=== PATIENT | female | born 1985 | race Caucasian/White ===

== ENCOUNTER 2019-04-16 20:49 | Emergency (ER) | payer OTHER ==
--- OUTSIDE RECORDS SUMMARY | 2019-04-16 20:51 | XMS REPORT ---
:1985 [facility] Address [address] [place] [address] Care Team Providers Name Role Phone Unavailable Unavailable Unavailable Payers Payer Name Policy Type Policy Number Effective Date Expiration Date Problems This patient has no known problems. Allergies, Adverse Reactions, Alerts Allergy Allergy Status Severity Reaction(s) Onset Inactive Treating Comments Name Type Date Date Clinician No Known DA Active U 2015-09 Allergies 00:00:0 0 Medications This patient has no known medications.
[2019-04-16] MEDS ORDERED: NA CHLORIDE 0.9% 1,000 ML ONE (22:01)
[2019-04-16 22:06] LABS: Barbiturates NEGATIVE (NEGATIVE); Benzodiazepines NEGATIVE (NEGATIVE); Cocaine NEGATIVE (NEGATIVE); METHAMPHETAM NEGATIVE (NEGATIVE); Methadone NEGATIVE (NEGATIVE); Opiates NEGATIVE (NEGATIVE); Phencyclidine NEGATIVE (NEGATIVE); THC Cannibis NEGATIVE (NEGATIVE)
--- NOTE | 2019-04-16 22:12 | RAD REPORT ---
EXAM DESCRIPTION: [place] Single View04/16/2019 9:59 pm CLINICAL HISTORY: cough COMPARISON: 2013 FINDINGS: The lungs appear clear of acute infiltrate. The heart is normal size IMPRESSION: No acute abnormalities displayed
[2019-04-16 22:19] LABS: Absolute Lymphocytes (CBC) 3.2 K/uL (0.7-4.9); Basophils % 0.3 % (0-1.3); Hematocrit 44.3 % (36.0-45.0); Lymphocytes % 31.3 % (15.3-44.8); MPV 9.4 fL (7.6-11.3); RBC Red Blood Cell Count 5.11 M/uL (3.86-4.86)
[2019-04-16 22:30] LABS: ALT/SGPT 21 U/L (12-78); AST/SGOT 9 U/L (15-37); Albumin 3.9 g/dL (3.4-5.0); Alkaline Phosphatase 90 U/L (45-117); BUN Blood Urea Nitrogen 11 mg/dL (7-18); Bicarbonate 24 mmol/L (21-32); Bilirubin Direct 0.1 mg/dL (0-0.2); Bilirubin Total 0.4 mg/dL (0.2-1.0); Glucose Level 85 mg/dL (74-106); Magnesium 2.4 mg/dL (1.8-2.4); NT PRO-BNP 26 pg/mL (<125); Potassium 3.7 mmol/L (3.5-5.1); Protein, Total 8.4 g/dL (6.4-8.2); Sodium Level 138 mmol/L (136-145); Troponin (Emerg Dept Use Only) < 0.02 ng/mL (0.0-0.045)
[2019-04-16 22:31] LABS: Protime INR 0.94
[2019-04-16 22:52] LABS: Urine Blood TRACE (NEG); Urine Glucose NEGATIVE (NEG); Urine Protein NEGATIVE (NEG); Urine Specific Gravity <1.005 (1.005-1.030)
--- NOTE | 2019-04-16 22:57 | EDPHYS ---
Physician Documentation [facility] Name: Kelsey Diaz Age: 33 yrs Sex: Female : 1985 Arrival Date: 04/16/2019 Time: 20:51 Bed 27 Private MD: Ed Brewer ED Physician Alonso Casey HPI: 04/16 22:45 This 33 yrs old Female presents to ER via Ambulatory with complaints of amadeo Stuttering, Leg Weakness, R Side Body Problems. 22:45 The patient's problem is reported as dysphasia, weakness, that is generalized. Onset: amadeo The symptoms/episode began/occurred 2 week(s) ago. Context: the episode(s) was witnessed, by family. The symptoms are alleviated by nothing. The symptoms are aggravated by nothing. Associated signs and symptoms: The patient has no apparent associated signs or symptoms. Severity of symptoms: At their worst the symptoms were mild in the emergency department the symptoms have resolved and did so just prior to arrival. Patient's baseline: Neuro: alert and fully oriented. The patient has experienced similar episodes in the past, several times. Historical: - Allergies: 20:56 No Known Allergies; aj - Home Meds: 20:56 None [Active]; aj - PMHx: 20:56 None; aj - PSHx: 20:56 ; Cholecystectomy; aj - Immunization history:: Adult Immunizations up to date. - Social history:: Smoking status: Patient/guardian denies using tobacco. - Ebola Screening: : Patient negative for fever greater than or equal to 101.5 degrees Fahrenheit, and additional compatible Ebola Virus Disease symptoms Patient denies exposure to infectious person Patient denies travel to an Ebola-affected area in the 21 days before illness onset No symptoms or risks identified at this time. - Family history:: not pertinent. ROS: 22:45 Constitutional: Negative for fever, chills, and weight loss, Eyes: Negative for injury, amadeo pain, redness, and discharge, ENT: Negative for injury, pain, and discharge, Neck: Negative for injury, pain, and swelling, Cardiovascular: Negative for chest pain, palpitations, and edema, Respiratory: Negative for shortness of breath, cough, wheezing, and pleuritic chest pain, Abdomen/GI: Negative for abdominal pain, nausea, vomiting, diarrhea, and constipation, Back: Negative for injury and pain, : Negative for injury, bleeding, discharge, and swelling, MS/Extremity: Negative for injury and deformity, Skin: Negative for injury, rash, and discoloration, Psych: Negative for depression, anxiety, suicide ideation, homicidal ideation, and hallucinations, Allergy/Immunology: Negative for hives, rash, and allergies, Endocrine: Negative for neck swelling, polydipsia, polyuria, polyphagia, and marked weight changes, Hematologic/Lymphatic: Negative for swollen nodes, abnormal bleeding, and unusual bruising. 22:45 Neuro: Positive for weakness. Exam: 22:45 Radiologist reports: neg amadeo 22:45 Constitutional: This is a well developed, well nourished patient who is awake, alert, and in no acute distress. Head/Face: Normocephalic, atraumatic. Eyes: Pupils equal round and reactive to light, extra-ocular motions intact. Lids and lashes normal. Conjunctiva and sclera are non-icteric and not injected. Cornea within normal limits. Periorbital areas with no swelling, redness, or edema. ENT: Nares patent. No nasal discharge, no septal abnormalities noted. Tympanic membranes are normal and external auditory canals are clear. Oropharynx with no redness, swelling, or masses, exudates, or evidence of obstruction, uvula midline. Mucous membranes moist. Neck: Trachea midline, no thyromegaly or masses palpated, and no cervical lymphadenopathy. Supple, full range of motion without nuchal rigidity, or vertebral point tenderness. No Meningismus. Chest/axilla: Normal chest wall appearance and motion. Nontender with no deformity. No lesions are appreciated. Cardiovascular: Regular rate and rhythm with a normal S1 and S2. No gallops, murmurs, or rubs. Normal PMI, no JVD. No pulse deficits. Respiratory: Lungs have equal breath sounds bilaterally, clear to auscultation and percussion. No rales, rhonchi or wheezes noted. No increased work of breathing, no retractions or nasal flaring. Abdomen/GI: Soft, non-tender, with normal bowel sounds. No distension or tympany. No guarding or rebound. No evidence of tenderness throughout. Back: No spinal tenderness. No costovertebral tenderness. Full range of motion. Skin: Warm, dry with normal turgor. Normal color with no rashes, no lesions, and no evidence of cellulitis. MS/ Extremity: Pulses equal, no cyanosis. Neurovascular intact. Full, normal range of motion. Neuro: Awake and alert, GCS 15, oriented to person, place, time, and situation. Cranial nerves II-XII grossly intact. Motor strength 5/5 in all extremities. Sensory grossly intact. Cerebellar exam normal. Normal gait. Psych: Awake, alert, with orientation to person, place and time. Behavior, mood, and affect are within normal limits. 22:48 Neuro: Orientation: is normal, appropriate for stated age, no acute changes, to person, amadeo place, time \T\ situation. Mentation: is normal, appropriate for stated age, no acute changes, responsive to voice lucid, able to follow commands, Memory: is normal, appropriate for stated age, no acute changes, Cranial nerves: grossly normal, is grossly normal based on the patient's age, no acute changes, Cerebellar function: is grossly normal, is grossly normal based on the patient's age, no acute changes, Motor: is normal, is grossly normal based on the patient's age, Sensation: is normal, no obvious gross deficits, appropriate Gait: is steady, appropriate for age, Deep tendon reflexes are 2+ (normal) in the bilateral brachioradialis, bicep, tricep and patellar and Achilles tendons, Babinski testing is normal, seizure activity, is not displayed by the patient. Vital Signs: 20:56 BP 140 / 76; Pulse 84; Resp 16; Temp 97.7; Pulse Ox 99% on R/A; Weight 99.79 kg; Height aj 5 ft. 4 in. (162.56 cm); 22:00 BP 121 / 85; Pulse 87; Resp 18; Pulse Ox 99% on R/A; rv 23:00 BP 111 / 90; Pulse 84; Resp 17; Temp 98; Pulse Ox 99% on R/A; rv 20:56 Body Mass Index 37.76 (99.79 kg, 162.56 cm) aj NIH Stroke Scale Scores: 22:48 NIHSS Score: 0 amadeo MDM: 21:36 Patient medically screened. amadeo 22:47 Data reviewed: vital signs, nurses notes, lab test result(s), EKG, radiologic studies, [facility] scan, plain films. 04/16 21:38 Order name: Basic Metabolic Panel; Complete Time: 22:43 [facility] 04/16 21:38 Order name: CBC with Diff 04/16 21:38 Order name: LFT's; Complete Time: 22:43 [facility] 04/16 21:38 Order name: Magnesium; Complete Time: 22:43 [facility] 04/16 21:38 Order name: NT PRO-BNP; Complete Time: 22:43 [facility] 04/16 21:38 Order name: PT-INR; Complete Time: 22:55 [facility] 04/16 21:38 Order name: Troponin (emerg Dept Use Only); Complete Time: 22:43 [facility] 04/16 21:38 Order name: XRAY Chest (1 view); Complete Time: 22:43 [facility] 04/16 21:38 Order name: CT Head Brain wo Cont 04/16 21:38 Order name: Sed Rate 04/16 21:38 Order name: CRP; Complete Time: 22:43 [facility] 04/16 21:38 Order name: UDS; Complete Time: 22:43 [facility] 04/16 21:57 Order name: Urine Dipstick--Ancillary (enter results); Complete Time: 22:55 [facility] 04/16 21:57 Order name: Test, Serum; Complete Time: 22:55 [facility] 04/16 21:38 Order name: EKG; Complete Time: 21:39 [facility] 04/16 21:38 Order name: Cardiac monitoring; Complete Time: 21:49 [facility] 04/16 21:38 Order name: EKG - Nurse/Tech; Complete Time: 21:49 [facility] 04/16 21:38 Order name: IV Saline Lock; Complete Time: 22:08 [facility] 04/16 21:38 Order name: Labs collected and sent; Complete Time: 22:08 [facility] 04/16 21:38 Order name: O2 Per Protocol; Complete Time: 21:49 [facility] 04/16 21:38 Order name: O2 Sat Monitoring; Complete Time: 21:49 [facility] 04/16 21:38 Order name: Urine Dipstick-Ancillary (obtain specimen); Complete Time: 21:49 [facility] 04/16 21:38 Order name: Urine Test (obtain specimen); Complete Time: 21:49 [facility] Administered Medications: 22:08 Drug: foLIC Acid 1 mg Route: IVPB; Site: right antecubital; mg2 23:13 Follow up: IV Status: Completed infusion rv 22:08 Drug: NS 0.9% 1000 ml Route: IV; Rate: 1 bolus; Site: right antecubital; mg2 23:13 Follow up: IV Status: Completed infusion; IV Intake: 1000ml rv 22:53 Drug: Aspirin 162 mg Route: PO; rv 23:13 Follow up: Response: No adverse reaction rv Disposition: 04/16/19 22:56 Discharged to Home. Impression: Weakness. - Condition is Stable. - Discharge Instructions: Weakness, Fatigue, Weakness, [id number], Aspirin and Your Heart. - Prescriptions for Vitamin 27- 0.8 mg Oral Tablet - take 1 tablet by ORAL route once daily; 30 tablet. - Medication Reconciliation Form, Thank You Letter, Antibiotic Education, Prescription Opioid Use form. - Follow up: Ed Brewer; When: 2 - 3 days; Reason: Recheck today's complaints, Continuance of care, Re-evaluation by your physician. Follow up: Tai White; When: 2 - 3 days; Reason: Recheck today's complaints, Continuance of care, Re-evaluation by your physician. - Problem is new. - Symptoms have improved. NIH Stroke Scale - NIH Stroke Score Date: 04/16/2019 Time: 22:48 Total Score = 0 1a. Level of Consciousness (LOC) - 0(Alert) 1b. Level of Consciousness (LOC) (Year \T\ Age) - 0(Both) 1c. LOC Commands (Open \T\ Closes Eyes/Wholesaler) - 0(Both) 2. Best Gaze (Lateral Gaze Paresis) - 0(Normal) 3. Visual Field Loss - 0(No visual loss) 4. Facial Palsy - 0(Normal) 5a. Left Arm: Motor (10-second hold) - 0(No drift) 5b. Right Arm: Motor (10-second hold) - 0(No drift) 6a. Left Leg: Motor (5-second hold - always test supine) - 0(No drift) 6b. Right Leg: Motor (5-second hold - always test supine) - 0(No drift) 7. Limb Ataxia (finger/nose \T\ heel/root - test with eyes open) - 0(Absent) 8. Sensory Loss (pinprick arms/legs/face) - 0(Normal) 9. Best Language: Aphasia (description/naming/reading) - 0(No aphasia) 10. Dysarthria (speech clarity - read or repeat words) - 0(Normal) 11. Extinction and Inattention (visual/tactile/auditory/spatial/personal) - 0(No abnormality) Initials: amadeo Signatures: Dispatcher [employer] Renata Mckeon RN Alonso Sanchez MD MD cha Gardose, Michele, RN RN mg2 Vicente, Ronaldo, RN RN rv Corrections: (The following items were deleted from the chart) 23:15 22:56 04/16/2019 22:56 Discharged to Home. Impression: Weakness. Condition is rv Stable. Discharge Instructions: Weakness, Fatigue, Weakness, [id number], Aspirin and Your Heart. Prescriptions for Vitamin 27-0.8 mg Oral Tablet - take 1 tablet by ORAL route once daily; 30 tablet. and Forms are Medication Reconciliation Form, Thank You Letter, Antibiotic Education, Prescription Opioid Use. Follow up: Ed Brewer; When: 2 - 3 days; Reason: Recheck today's complaints, Continuance of care, Re-evaluation by your physician. Follow up: Tai White; When: 2 - 3 days; Reason: Recheck today's complaints, Continuance of care, Re-evaluation by your physician. Problem is new. Symptoms have improved. amadeo
--- NOTE | 2019-04-16 22:57 | ER ---
Nurse's Notes [facility] Name: Kelsey Diaz Age: 33 yrs Sex: Female : 1985 Arrival Date: 04/16/2019 Time: 20:51 Bed 27 Private MD: Ed Brewer Diagnosis: Weakness Presentation: 04/16 20:54 Presenting complaint: Patient states: Reports bilateral leg weakness and numbness for 1 aj week, also reports difficulty finding words for same length of time. Patient reports "trouble using right side of body" for 4 months. Seen by multiple providers. Smooth steady gait with no speech difficulty noted in triage. Transition of care: patient was not received from another setting of care. Onset of symptoms was December 2018. Risk Assessment: Do you want to hurt yourself or someone else? Patient reports no desire to harm self or others. Initial Sepsis Screen: Does the patient meet any 2 criteria? No. Patient's initial sepsis screen is negative. Does the patient have a suspected source of infection? No. Patient's initial sepsis screen is negative. Care prior to arrival: None. 20:54 Method Of Arrival: Ambulatory 20:54 Acuity: MARLEN 4 aj Triage Assessment: 20:56 General: Appears in no apparent distress. comfortable, Behavior is calm, cooperative, aj appropriate for age. Pain: Denies pain. Neuro: Level of Consciousness is awake, alert, obeys commands, Oriented to person, place, time, situation, Appropriate for age Curing Oven Tender are equal bilaterally Moves all extremities. Full function Gait is steady, Speech is normal, Facial symmetry appears normal, Pupils are PERRLA, Numbness in right leg and left leg. Neuro:. Respiratory: Airway is patent Respiratory effort is even, unlabored, Respiratory pattern is regular, symmetrical. Derm: Skin is intact, is healthy with good turgor, Skin is pink, warm \\T\\ dry. normal. Historical: - Allergies: 20:56 No Known Allergies; aj - Home Meds: 20:56 None [Active]; aj - PMHx: 20:56 None; aj - PSHx: 20:56 ; Cholecystectomy; aj - Immunization history:: Adult Immunizations up to date. - Social history:: Smoking status: Patient/guardian denies using tobacco. - Ebola Screening: : Patient negative for fever greater than or equal to 101.5 degrees Fahrenheit, and additional compatible Ebola Virus Disease symptoms Patient denies exposure to infectious person Patient denies travel to an Ebola-affected area in the 21 days before illness onset No symptoms or risks identified at this time. - Family history:: not pertinent. Screenin:41 Abuse screen: Denies threats or abuse. Denies injuries from another. Nutritional rv screening: No deficits noted. Tuberculosis screening: No symptoms or risk factors identified. Fall Risk None identified. Assessment: 21:40 General: Appears in no apparent distress. comfortable, Behavior is calm, cooperative. rv Pain: Denies pain. Neuro: Level of Consciousness is awake, alert, obeys commands, Oriented to person, place, time, situation. Cardiovascular: Patient's skin is warm and dry. Respiratory: Airway is patent. GI: No signs and/or symptoms were reported involving the gastrointestinal system. : No signs and/or symptoms were reported regarding the genitourinary system. EENT: No signs and/or symptoms were reported regarding the EENT system. Derm: Skin is intact. Musculoskeletal: Reports weakness in right arm and right leg. 22:13 Reassessment: Patient appears in no apparent distress at this time. Patient and/or rv family updated on plan of care and expected duration. Pain level reassessed. Patient is alert, oriented x 3, equal unlabored respirations, skin warm/dry/pink. patient came back from CT scan. awaiting results. Vital Signs: 20:56 BP 140 / 76; Pulse 84; Resp 16; Temp 97.7; Pulse Ox 99% on R/A; Weight 99.79 kg; Height aj 5 ft. 4 in. (162.56 cm); 22:00 BP 121 / 85; Pulse 87; Resp 18; Pulse Ox 99% on R/A; rv 23:00 BP 111 / 90; Pulse 84; Resp 17; Temp 98; Pulse Ox 99% on R/A; rv 20:56 Body Mass Index 37.76 (99.79 kg, 162.56 cm) aj NIH Stroke Scale Scores: 22:48 NIHSS Score: 0 [facility] ED Course: 20:51 Patient arrived in ED. do 20:52 Ed Brewer MD is Private Physician. do 20:56 Triage completed. aj 20:56 Arm band placed on left wrist. Patient placed in waiting room. aj 21:36 Alonso Casey MD is Attending Physician. amadeo 21:39 Santy Monahan, RN is Primary Nurse. rv 21:41 Patient has correct armband on for positive identification. Placed in gown. Bed in low rv position. Call light in reach. Side rails up X 1. Adult w/ patient. Pulse ox on. NIBP on. 22:00 XRAY Chest (1 view) In Process Unspecified. EDMS 22:08 No provider procedures requiring assistance completed. Inserted saline lock: 22 gauge mg2 in right antecubital area, using aseptic technique. Blood collected. by ANGEL Beaver Tech. 22:16 CT Head Brain wo Cont In Process Unspecified. EDMS 22:56 Ed Brewer MD is Referral Physician. amadeo 22:56 Tai White MD is Referral Physician. amadeo 23:14 IV discontinued, intact, bleeding controlled, No redness/swelling at site. Pressure rv dressing applied. Administered Medications: 22:08 Drug: foLIC Acid 1 mg Route: IVPB; Site: right antecubital; mg2 23:13 Follow up: IV Status: Completed infusion rv 22:08 Drug: NS 0.9% 1000 ml Route: IV; Rate: 1 bolus; Site: right antecubital; mg2 23:13 Follow up: IV Status: Completed infusion; IV Intake: 1000ml rv 22:53 Drug: Aspirin 162 mg Route: PO; rv 23:13 Follow up: Response: No adverse reaction rv Intake: 23:13 IV: 1000ml; Total: 1000ml. rv Outcome: 22:56 Discharge ordered by . amadeo 23:14 Discharged to home ambulatory, with family. rv 23:14 Condition: good 23:14 Discharge instructions given to patient, Instructed on discharge instructions, follow up and referral plans. medication usage, Demonstrated understanding of instructions, follow-up care, medications, Prescriptions given X 1. 23:15 Patient left the ED. rv NIH Stroke Scale - NIH Stroke Score Date: 04/16/2019 Time: 22:48 Total Score = 0 1a. Level of Consciousness (LOC) - 0(Alert) 1b. Level of Consciousness (LOC) (Year \\T\\ Age) - 0(Both) 1c. LOC Commands (Open \\T\\ Closes Eyes/Hand Collator) - 0(Both) 2. Best Gaze (Lateral Gaze Paresis) - 0(Normal) 3. Visual Field Loss - 0(No visual loss) 4. Facial Palsy - 0(Normal) 5a. Left Arm: Motor (10-second hold) - 0(No drift) 5b. Right Arm: Motor (10-second hold) - 0(No drift) 6a. Left Leg: Motor (5-second hold - always test supine) - 0(No drift) 6b. Right Leg: Motor (5-second hold - always test supine) - 0(No drift) 7. Limb Ataxia (finger/nose \\T\\ heel/root - test with eyes open) - 0(Absent) 8. Sensory Loss (pinprick arms/legs/face) - 0(Normal) 9. Best Language: Aphasia (description/naming/reading) - 0(No aphasia) 10. Dysarthria (speech clarity - read or repeat words) - 0(Normal) 11. Extinction and Inattention (visual/tactile/auditory/spatial/personal) - 0(No abnormality) Initials: amadeo Signatures: Dispatcher [employer] Renata Mckeon RN RN aj Anderson, Corey, MD MD cha Ogletree, Danielle do Gardose, Michele, RN RN mg2 Vicente, Ronaldo, RN RN rv
[2019-04-16] MEDS ORDERED: ASPIRIN 81 MG CHEWABLE TABLET ONE (23:05)
--- NOTE | 2019-04-17 10:09 | RAD REPORT ---
EXAM DESCRIPTION: CT - Head Brain Wo Cont - 04/17/2019 1:38 am CLINICAL HISTORY: The patient is 33 years old and is Female; Dizziness;Pain TECHNIQUE: Axial computed tomography images of the head/brain without intravenous contrast. Sagitt al and coronal reformatted images were created and reviewed. This CT exam was performed using one o r more of the following dose reduction techniques: automated exposure control, adjustment of the mA and/or kV according to patient size, and/or use of iterative reconstruction technique. COMPARISON: No relevant prior studies available. FINDINGS: BRAIN: Unremarkable. The mckeon-white matter differentiation is preserved . No hemorrhag e. No significant white matter disease. No edema. No extra-axial fluid collections. VENTRICLES: Unremarkable. No ventriculomegaly. BONES/JOINTS: No acute fracture. SOFT TISSUES: Unremarkable. SINUSES: Unremarkable as visualized. No acute sinusitis. MASTOID AIR CELLS: Unremarkable as visualized. No mastoid effusion. IMPRESSION: No acute intracranial findings. Electronically signed by: Devorah Snow MD 04/16/2019 10:24 PM CDT Due to temporary technical issues with the PACS/Fluency reporting system, reports are being signed by the in house radiologist as a courtesy to ensure prompt reporting. The interpreting radiologist is f ully responsible for the content of the report.
--- NOTE | 2019-04-17 15:39 | EKG ---
Test Date: 2019-04-16 Test Time: 21:44:11 Medical Leader: MG MEASUREMENT RESULTS: Intervals: Rate: 83 SD: 142 QRSD: 80 QT: 356 QTc: 418 [place]: P: 43 SD: 142 QRS: -4 T: 32 INTERPRETIVE STATEMENTS: Normal sinus rhythm Normal ECG Compared to ECG 05/02/2014 16:34:32 Sinus arrhythmia no longer present Electronically Signed On 04-17-19 15:35:34 CDT by Alberto Griggs
== END 2019-04-16 23:15 | disposition home or self-care (01) ==
LOC: ER 20:49
DX: R53.1 Weakness (principal)
CPT/HCPCS: 36415; 70450; 71045; 80048; 80076; 80307; 81003; 83735; 83880; 84484; 84703; 85025; 85610; 85652; 86140; 93005; 96365; 99284; J7030

== ENCOUNTER 2022-02-24 12:42 | Emergency (ER) | payer OTHER, SELFPAY ==
--- OUTSIDE RECORDS SUMMARY | 2022-02-24 12:46 | XMS REPORT | Continuity of Care Document ---
:1985 Author Organization [facility] t Address [address] [place] [address] Care Team Providers Name Role Phone KAY, A Primary Care Physician Unavailable Kailey Farrell Attending Clinician Kailey MANCIA Attending Clinician Unavailable LIZBETH DIXON Attending Clinician Unavailable Barry FLORES Attending Clinician Unavailable Minerva BORJA Attending Clinician Unavailable Omer RUTLEDGE Attending Clinician Unavailable Louisa Kerr Attending Clinician Unavailable Doctor Unassigned, Name Attending Clinician Unavailable Gregg Adhikari DO Attending Clinician Provider, Urgent Care Attending Clinician Unavailable LIZBETH DIXON Admitting Clinician Unavailable Physician, Primary or Family Admitting Clinician Unavailabl e Payers Payer Name Policy Type Policy Number Effective Date Expiration Date Cristóbal MARKS [id number] 2021 00:00:00 2021 00 :00:00 Problems Condition Condition Condition Status Onset Resolution Last Treating Co mments Source Name Details Category Date Date Treatment Clinician Date History of History of Disease Active U nivers tubal tubal 4-25 ity of ligation ligation 00:00: [facility] Obesity Obesity Disease Active Univers (BMI (BMI 4-25 ity of 30-39.9) 30-39.9) 00:00: [facility] Well woman Well woman Disease Active U nivers exam exam 4-04 ity of 00:: [facility] Morbid Morbid Disease Active Univers obesity obesity 3-15 ity of with body with body 00:00: [facility] s mass index mass index 00 Nh dical of of Branch 40.0-49.9 40.0-49.9 Fibromyalg Fibromyalg Disease Active 2019- U nivers ia ia 1-08 ity of 00:00: [facility] Rheumatoid Rheumatoid Disease Active 2019-0 U nivers arthritis arthritis 1-08 ity of 00:00: [facility] Fibromyalg Problem Active 2020-03-11 M emoria ia 02:45:29 l [place] Fibromyalg ia Active Problem 0 [facility] Drug or Problem Active 2020-03-11 Davion yelena medicinal 02:45:29 l substance Drug or Herm arron causing medicinal adverse substance effect in causing therapeuti adverse c use effect in therapeuti c use Active Problem 03/11/2020 [facility] Vitamin D Problem Active 2020-03-11 Me moria deficiency 02:45:29 l Vitamin [place] D deficiency Active Problem 03/11/2020 [facility] Degenerati Problem Active 2020-03-11 M emoria ve disc 02:45:29 l disease, [place] lumbar Degenerati ve disc disease, lumbar Active Problem 03/11/2020 [facility] Pain in Problem Active 2020-03-11 Davion yelena joint 02:45:29 l involving Pain in Herm arron multiple joint sites involving multiple sites Active Problem 03/11/2020 [facility] Abnormal Problem Active 2020-03-11 Mem oria clinical 02:45:29 l finding Abnormal Lisa nn clinical finding Active Problem 03/11/2020 [facility] Other long Problem Active 2020-03-11 M emoria term 02:45:29 l (current) 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 (current) drug therapy Active Problem 03/11/2020 [facility] Gastritis, Problem Active 2020-03-11 M emoria unspecifie 02:45:29 l d, with Sebastian bleeding Gastritis, unspecifie d, with bleeding Active Problem 03/11/2020 [facility] Memory Problem Active 2020-03-11 Memor ia loss 02:45:29 l Memory [place] loss Active Problem 03/11/2020 [facility] Inflammato Problem Active 2020-03-11 M emoria ry 02:45:29 l polyarthro Wilfredo n tory Inflammato ry polyarthro tory Active Problem 03/11/2020 [facility] Allergies, Adverse Reactions, Alerts Allergy Allergy Status Severity Reaction(s) Onset Inactive Treating Comm ents Source Name Type Date Date Clinician Prilosec Prilosec Active dyspepsia 2020-0 Mem oria 6-09 l 00:00: Motrin Motrin Active dyspepsia 2020-0 Memoria 6-09 l 00:00: Meloxica Meloxica Active dyspepsia 2020-0 Mem oria m m 6-09 l 00:00: Advil Advil Active dyspepsia 2020-0 Memoria 6-09 l 00:00: Sulfasal Sulfasal Active Info Not 2020-0 Davion yelena azine azine Available 6-09 l 00:00: [place] 00 Hydroxyc Hydroxyc Active hypoglycemia 2020-0 Memoria hloroqui hloroqui 6-09 l ne ne 00:00: Sebastian Sulfate Sulfate 00 No Known DA Active U [facility] Allergie 10-25 Corpus s 00:00: Jeannie 00 [facility] No Known DA Active [facility] Allergie 10-25 Corp[facility] s 00:00: Jeannie [facility] NO KNOWN Drug Active Univers ALLERGIE Class ity of [facility] [place] [facility] Social History Social Habit Start Date Stop Date Quantity Comments Source Exposure to 2022-01-12 2022-01-22 Not sure [facility] SARS-CoV-2 (event) 00:00:00 13:15:00 Medica l Branch Alcohol intake 2022-01-22 2022-01-22 0 /d [facility] 00:00:00 00:00:00 Medical Branch Education 2021-10-24 2021-10-24 21 [facility] 00:00:00 00:00:00 Medical Branch Sex [birth year] [facility] 00:00:00 00:00:00 Medical Branch Smoking Status Start Date Stop Date Source Never smoker [facility] Medications Ordered Filled Start Stop Current Ordering Indication Dosage Frequency Signature Comments Components Source Medication Medication Date Date Medication? Clinician (SIG) Name Name Yes [id number] 1{tbl} Take 1 Univers [id number] 3-15 tablet by ity of fum-folic 00:00: mouth [place] () 00 daily. Medical 27 mg iron- Branch 1 mg folic tablet docusate Yes [id number] 200mg Take 2 U nivers 100 mg 3-15 capsules ity of capsule 00:00: by mouth [place] 00 once daily Medical as needed Branch for Constipati on. ferrous Yes [id number] 325mg Take 1 Un jesus sulfate 325 3-15 tablet by ity of mg (65 mg 00:00: mouth 2 [place] iron) 00 (two) Medical tablet times Branch daily. ibuprofen Yes [id number] 600mg Take 1 Univers 600 mg 3-15 tablet by ity of tablet 00:00: mouth [place] 00 every 6 Medical (six) Branch hours as needed (Pain). Take with food or milk. Yes [id number] 1{tbl} Take 1 Univers [id number] 3-15 tablet by ity of fum-folic 00:00: mouth [place] () 00 daily. Medical 27 mg iron- Branch 1 mg folic tablet docusate Yes [id number] 200mg Take 2 U nivers 100 mg 3-15 capsules ity of capsule 00:00: by mouth [place] 00 once daily Medical as needed Branch for Constipati on. ferrous Yes [id number] 325mg Take 1 Un jesus sulfate 325 3-15 tablet by ity of mg (65 mg 00:00: mouth 2 [place] iron) 00 (two) Medical tablet times Branch daily. ibuprofen Yes [id number] 600mg Take 1 Univers 600 mg 3-15 tablet by ity of tablet 00:00: mouth [place] 00 every 6 Medical (six) Branch hours as needed (Pain). Take with food or milk. cyclobenzap 2020-09- No [id number] 5mg Take 1 Univers rine 5 mg 2-27 04-27 tablet by ity of tablet 00:00: 04:59 mouth 3 [place] 00 :00 (three) Medical times Branch daily for 120 days. cyclobenzap 2020-09- No [id number] 5mg Take 1 Univers rine 5 mg 2-27 04-27 tablet by ity of tablet 00:00: 04:59 mouth 3 [place] 00 :00 (three) Medical times Branch daily for 120 days. Baclofen 2019- Yes Ngozi 1 tablet Memoria 2-06 Vo l 00:00: 00 Baclofen 2020-1 Yes Ngozi 1 tablet Memoria 2-06 Vo l 00:00: 00 Baclofen 2020-1 Yes Ngozi 1 tablet Memoria 2-06 Vo l 00:00: 00 Baclofen 2020-1 Yes Ngozi 1 tablet Memoria 2-06 Vo l 00:00: 00 Tylenol 8 2020-0 Yes Ngozi 2 tablets Memoria Hour 6-10 Vo as needed l 02:45: 2020-0 Yes Ngozi not Memori a control 6-10 Vo defined l pill 02:45: Vitamin B12 2020-0 Yes Ngozi 2 tablet Memoria 6-10 Vo l 02:45: Vitamin D3 2020-0 Yes Ngozi 1 capsule Memoria 6-10 Vo l 02:45: Tramadol 2020-0 Yes Ngozi 2 tablets Memoria HCl 6-10 Vo l 02:45: Tylenol 8 2020-0 Yes Ngozi 2 tablets Memoria Hour 6-10 Vo as needed l 02:45: 2020-0 Yes Ngozi not Memori a control 6-10 Vo defined l pill 02:45: Sebastian 52 Vitamin B12 2020-0 Yes Ngozi 2 tablet Memoria 6-10 Vo l 02:45: Sebastian 52 Vitamin D3 2020-0 Yes Ngozi 1 capsule Memoria 6-10 Vo l 02:45: Sebastian 52 Tramadol 2020-0 Yes Ngozi 2 tablets Memoria HCl 6-10 Vo l 02:45: Sebastian 52 Tylenol 8 2020-0 Yes Ngozi 2 tablets Memoria Hour 6-10 Vo as needed l 02:45: Sebastian 52 2020-0 Yes Ngozi not Memori a control 6-10 Vo defined l pill 02:45: Sebastian 52 Vitamin B12 2020-0 Yes Ngozi 2 tablet Memoria 6-10 Vo l 02:45: Sebastian 52 Vitamin D3 2020-0 Yes Ngozi 1 capsule Memoria 6-10 Vo l 02:45: Sebastian 52 Tramadol 2020-0 Yes Ngozi 2 tablets Memoria HCl 6-10 Vo l 02:45: Sebastian 52 Tylenol 8 2020-0 Yes Ngozi 2 tablets Memoria Hour 6-10 Vo as needed l 02:45: Sebastian 52 2020-0 Yes Ngozi not Memori a control 6-10 Vo defined l pill 02:45: Sebastian 52 Vitamin B12 2020-0 Yes Ngozi 2 tablet Memoria 6-10 Vo l 02:45: [place] 52 Vitamin D3 2020-0 Yes Ngozi 1 capsule Memoria 6-10 Vo l 02:45: Sebastian 52 Tramadol 2020-0 Yes Ngozi 2 tablets Memoria HCl 6-10 Vo l 02:45: Sebastian Craig Baclofen 2020-0 Yes Geovani TAKE 1 Me moria 4-17 Alex TABLET BY l 02:45: MOUTH [place] 41 EVERY 8 HOURS Baclofen 2020-0 Yes Geovani TAKE 1 Me moria 4-17 Alex TABLET BY l 02:45: MOUTH [place] 41 EVERY 8 HOURS Baclofen 2020-0 Yes Geovani TAKE 1 Me moria 4-17 Alex TABLET BY l 02:45: MOUTH [place] 41 EVERY 8 HOURS Baclofen 2020-0 Yes Geovani TAKE 1 Me moria 4-17 Alex TABLET BY l 02:45: MOUTH Sebastian 41 EVERY 8 HOURS Cimzia 2020-0 Yes Ngozi 2 ml Memor ia Prefilled 4-16 Vo l 00:00: [place] 00 Cimzia 2020-0 Yes Ngozi 2 ml Memor ia Starter Kit 4-16 Vo l 00:00: [place] 00 Cimzia 2020-0 Yes Ngozi 2 ml Memor ia Prefilled 4-16 Vo l 00:00: [place] 00 Cimzia 2020-0 Yes Ngozi 2 ml Memor ia Starter Kit 4-16 Vo l 00:00: [place] 00 Cimzia 2020-0 Yes Ngozi 2 ml Memor ia Prefilled 4-16 Vo l 00:00: [place] 00 Cimzia 2020-0 Yes Ngozi 2 ml Memor ia Starter Kit 4-16 Vo l 00:00: [place] 00 Cimzia 2020-0 Yes Ngozi 2 ml Memor ia Prefilled 4-16 Vo l 00:00: [place] 00 Cimzia 2020-0 Yes Ngozi 2 ml Memor ia Starter Kit 4-16 Vo l 00:00: [place] Hydroxychlo 2020-0 Yes Geovani 1 tablet Memoria roquine 4-01 Alex as l Sulfate 00:00: directed Wilfredo quach 00 Hydroxychlo 2020-0 Yes Geovani 1 tablet Memoria roquine 4-01 Alex as l Sulfate 00:00: directed Wilfredo quach 00 Hydroxychlo 2020-0 Yes Geovani 1 tablet Memoria roquine 4-01 Alex as l Sulfate 00:00: directed Wilfredo quach 00 Hydroxychlo 2020-0 Yes Geovani 1 tablet Memoria roquine 4-01 Alex as l Sulfate 00:00: directed Wilfredo quach 00 Baclofen 2020-0 Yes Ngozi as Mem oria 3-14 Vo directed l 00:00: Sebastian 00 Baclofen 2020-0 Yes Ngozi as Mem oria 3-14 Vo directed l 00:00: [place] 00 Baclofen 2020-0 Yes Ngozi as Mem oria 3-14 Vo directed l 00:00: [place] 00 Baclofen 2020-0 Yes Ngozi as Mem oria 3-14 Vo directed l 00:00: [place] 00 Vitamin D 2020-0 Yes Ngozi 1 capsule Memoria (Ergocalcif 1-20 Vo l glendy) 00:00: Sebastian 00 Vitamin D 2020-0 Yes Ngozi 1 capsule Memoria (Ergocalcif 1-20 Vo l glendy) 00:00: Vitamin D 2020-0 Yes Ngozi 1 capsule Memoria (Ergocalcif 1-20 Vo l glendy) 00:00: Vitamin D 2020-0 Yes Ngozi 1 capsule Memoria (Ergocalcif 1-20 Vo l glendy) 00:00: Tramadol 2020-0 Yes Ngozi 1 tablet Memoria HCl 1-14 Vo as needed l 00:00: Tramadol 2020-0 Yes Ngozi 1 tablet Memoria HCl 1-14 Vo as needed l 00:00: Tramadol 2020-0 Yes Ngozi 1 tablet Memoria HCl 1-14 Vo as needed l 00:00: Tramadol 2020-0 Yes Ngozi 1 tablet Memoria HCl 1-14 Vo as needed l 00:00: Tramadol 2019-0 Yes Ngozi 1 tablet Memoria HCl 8-26 Vo as needed l 00:00: Tramadol 2019-0 Yes Ngozi 1 tablet Memoria HCl 8-26 Vo as needed l 00:00: Tramadol 2019-0 Yes Ngozi 1 tablet Memoria HCl 8-26 Vo as needed l 00:00: Tramadol 2019-0 Yes Ngozi 1 tablet Memoria HCl 8-26 Vo as needed l 00:00: Sulfasalazi 2019-0 Yes Ngozi 2 tablets Memoria ne 6-25 Vo l 00:00: Sulfasalazi 2019-0 Yes Ngozi 2 tablets Memoria ne 6-25 Vo l 00:00: Sulfasalazi 2019-0 Yes Ngozi 2 tablets Memoria ne 6-25 Vo l 00:00: Sulfasalazi 2019-0 Yes Ngozi 2 tablets Memoria ne 6-25 Vo l 00:00: MethylPREDN 2019-0 Yes Ngozi 2 tablet Memoria ISolone 6-06 Vo with food l 00:00: or milk in the morning MethylPREDN 2019-0 Yes Ngozi 2 tablet Memoria ISolone 6-06 Vo with food l 00:00: or milk in the morning MethylPREDN 2019-0 Yes Ngozi 2 tablet Memoria ISolone -06 Vo with food l 00:00: or milk in [place] 00 the morning MethylPREDN 2019-0 Yes Ngozi 2 tablet Memoria ISolone 6-06 Vo with food l 00:00: or milk in [place] 00 the morning Immunizations Ordered Filled Immunization Date Status Comments Sourc e Immunization Name Name TDAP 2021-10-23 Completed [facility] 00:00:00 [facility] TD 2021-10-23 Completed [facility] 00:00:00 [facility] Td 2012-06-11 Completed [facility] 00:00:00 [facility] Td 2012-06-11 Completed [facility] 00:00:00 [facility] Vital Signs Vital Name Observation Time Observation Value Comments Source Systolic blood 2022-01-22 18:15:00 124 mm[Hg] [facility] Diastolic blood 2022-01-22 18:15:00 87 mm[Hg] [facility] Heart rate 2022-01-22 18:15:00 103 /min [facility] Body temperature 2022-01-22 18:15:00 36.28 Jayla [facility] [place] [facility] Res[facility] 2022-01-22 18:15:00 20 /min [facility] Body height 2022-01-22 18:15:00 162.6 cm [facility] Body weight 2022-01-22 18:15:00 99.536 kg [facility] BMI 2022-01-22 18:15:00 37.67 kg/m2 [facility] Weight 2020-03-08 19:45:00 [facility] [place] Height 2020-03-08 19:45:00 [facility] Sebastian Heart Rate 2020-03-08 19:45:00 [facility] [place] Diastolic (mm Hg) 2020-03-08 19:45:00 Mem orial [place] Systolic (mm Hg) 2020-03-08 19:45:00 Davion rial [place] Weight 2019-11-19 20:30:00 [facility] [place] Height 2019-11-19 20:30:00 [facility] [place] Heart Rate 2019-11-19 20:30:00 [facility] [place] Diastolic (mm Hg) 2019-11-19 20:30:00 Mem orial [place] Systolic (mm Hg) 2019-11-19 20:30:00 Davion rial [place] Weight 2019-10-13 19:15:00 [facility] [place] Height 2019-10-13 19:15:00 [facility] [place] Heart Rate 2019-10-13 19:15:00 [facility] [place] Diastolic (mm Hg) 2019-10-13 19:15:00 Mem orial [place] Systolic (mm Hg) 2019-10-13 19:15:00 Davion rial [place] Weight 2019-06-09 17:30:00 [facility] [place] Height 2019-06-09 17:30:00 [facility] [place] Heart Rate 2019-06-09 17:30:00 [facility] [place] Diastolic (mm Hg) 2019-06-09 17:30:00 Mem orial Sebastian Systolic (mm Hg) 2019-06-09 17:30:00 Davion rial [place] Weight 2019-03-24 16:30:00 [facility] [place] Height 2019-03-24 16:30:00 [facility] [place] Heart Rate 2019-03-24 16:30:00 [facility] [place] Diastolic (mm Hg) 2019-03-24 16:30:00 Mem orial [place] Systolic (mm Hg) 2019-03-24 16:30:00 Davion rial [place] Procedures This patient has no known procedures. Encounters Start End Encounter Admission Attending Care Care Encounter Source Date/Time Date/Time Type Type Clinicians Facility Department ID 2021-07-18 Outpatient [id number] Memoria 11:11:38 [id number] [id number] 2021-07-12 Outpatient [id number] Memoria 07:45:02 [id number] Sebastian [id number] 2021-06-28 Outpatient [id number] Memoria 12:54:56 [id number] Sebastian [id number] 2021-05-22 Outpatient [id number] Memoria 17:34:17 [id number] Sebastian [id number] 2022-01-22 2022-01-22 Office Akinmarahpe, [facility] [id number] Univers 13:15:00 14:00:22 Visit 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 [id number] Univers 13:15:00 14:00:22 YODIT souza [facility] 2022-01-01 2022-01-01 Outpatient R AKINSIPE, [facility] [id number] Univers 13:00:00 13:38:43 YODIT chua [facility] 2021-12-15 2021-12-15 Outpatient R AKINSIPE, [facility] [id number] Univers 09:30:00 10:37:19 YODIT souza [facility] 2021-12-04 2021-12-12 Inpatient P DIXON, [facility] IVAN [id number] Univers 20:59:00 16:30:00 JUSTO shukla [facility] 2021-10-23 2021-10-23 Outpatient R AKINSIPE, [facility] IVAN [id number] Univers 13:00:00 14:04:13 YODIT chua [facility] 2021-09-28 2021-09-28 Outpatient R AKINSIPE, [facility] [id number] Univers 08:00:00 07:53:03 YODIT souza [facility] 2021-09-12 2021-09-12 Outpatient R MARK, [facility] [id number] Univers 10:30:00 10:44:35 MANJIT shukla [facility] 2021-07-12 2021-07-12 Outpatient R JONH, [facility] [id number] Univers 08:00:00 08:18:38 JOHNNA souza [facility] 2021-06-28 2021-06-28 Outpatient R MATY, [facility] [id number] [facility] 13:00:00 13:00:00 JOSÉ MIGUEL souza [facility] 2021-05-22 2021-05-22 Emergency EM Usha, [facility] [id number] [facility] 16:08:00 18:58:00 Sheyla [id number] [facility] 2020-12-22 2020-12-22 Orders Doctor CARIDAD [id number] 00:00:00 00:00:00 Only Unassigned, [place] [id number] [place] [facility] [id number] 2020-12-19 2020-12-19 Patient Onofre [facility] [id number] 00:00:00 00:00:00 Outreach [facility] [id number] [facility] [id number] PAVILLION [id number] 2020-10-19 2020-10-19 Urgent Provider, [facility] [id number] 09:28:09 10:16:41 Care [facility] [id number] Care Odin [id number] Professio [id number] nal 044 Office Building One Results Test Description Test Time Test Comments Results Result Comments Source PROTHROMBIN TIME 2021-05-22 21:36:00 Test Item Value Reference Range Interpretation Comme nts PROTHROMBIN TIME PATIENT (test 11.2 SECONDS 9.6-12.3 N code = PTP) INTERNATIONAL NORMAL RATIO 0.99 R ecommended INR range (warfarin (test code = INR) therapy): 2.0 - 3.0INR (International Normalized Ratio) should b eused when interpreting or al anticoaglulant therapy. For atrial fibrilla tion and treatment orpre vention of deep vein thrombosis . Patients with Palmaz-Benitez s tent *: 2.0 - 3.0 Pat ients with mechanical hear t valve *: 2.5 - 3.5 Pat ients with flex-stent *: 3.0 - 4.0(*) = lathe winder's suggested range Is patient on anticoagulants? No AnticoagulantsUA RFLX MICROSCOPIC CULTURE 2021-05-22 19:51:00 Test Item Value Reference Range Interpretation Comments UA COLOR (test code = COLU) Colorless YELLOW UA APPEARANCE (test code = CLEAR CLEAR APPU) UA GLUCOSE DIPSTICK (test NORMAL mg/dL NEGATIVE code = DGLUU) UA BILIRUBIN DIPSTICK (test NEGATIVE NEGATIVE code = BILU) UA KETONE DIPSTICK (test code NEGATIVE mg/dL NEGATIVE = KETU) UA SPECIFIC GRAVITY (test 1.006 1.001-1.035 N code = SGU) UA BLOOD DIPSTICK (test code NEGATIVE NEGATIVE = ROSEMARY) UA PH DIPSTICK (test code = 5.5 5.5-7.0 N EMANUEL) UA PROTEIN DIPSTICK (test NEGATIVE mg/dL NEGATIVE code = PROU) UA UROBILINOGEN DIPSTICK NORMAL mg/dL NORMAL (test code = URO) UA NITRITE DIPSTICK (test NEGATIVE NEGATIVE code = PIERRE) UA LEUKOCYTE ESTERASE 250 NEGATIVE A DIPSTICK (test code = LEUU) UA COMMENT (test code = COMU) VOLUME 10-12 ML URINE SPECIMEN DESCRIPTION Clean Catch (test code = UASPEC) UA WBC (test code = WBCU) 21 - 30 #/HPF 0-10 A UA SQUAMOUS CELLS (test code 21 - 40 #/LPF <100 A = SQU) UA CULTURE NEEDED? (test code Criteria met = UACULT) Indication for culture: Gross HematuriaURINE SOURCE: ccUA MICROSCOPIC 2021-05-22 19:51:00 Test Item Value Reference Range Interpretation Comments UA RBC (test code = RBCU) 0-2 #/HPF NONE SEEN UA BACTERIA (test code = BACU) 3+ HPF NONE SEEN Indication for culture: Gross HematuriaURINE SOURCE: ccUA RFLX MICROSCOPIC [id number] 19:50:00 Test Item Value Reference Range Interpretation Comments UA COLOR (test code = COLU) Colorless YELLOW UA APPEARANCE (test code = CLEAR CLEAR APPU) UA GLUCOSE DIPSTICK (test NORMAL mg/dL NEGATIVE code = DGLUU) UA BILIRUBIN DIPSTICK (test NEGATIVE NEGATIVE code = BILU) UA KETONE DIPSTICK (test code NEGATIVE mg/dL NEGATIVE = KETU) UA SPECIFIC GRAVITY (test 1.006 1.001-1.035 N code = SGU) UA BLOOD DIPSTICK (test code NEGATIVE NEGATIVE = ROSEMARY) UA PH DIPSTICK (test code = 5.5 5.5-7.0 N EMANUEL) UA PROTEIN DIPSTICK (test NEGATIVE mg/dL NEGATIVE code = PROU) UA UROBILINOGEN DIPSTICK NORMAL mg/dL NORMAL (test code = URO) UA NITRITE DIPSTICK (test NEGATIVE NEGATIVE code = PIERRE) UA LEUKOCYTE ESTERASE 250 NEGATIVE A DIPSTICK (test code = LEUU) UA COMMENT (test code = COMU) VOLUME 10-12 ML URINE SPECIMEN DESCRIPTION Clean Catch (test code = UASPEC) UA WBC (test code = WBCU) 21 - 30 #/HPF 0-10 A UA SQUAMOUS CELLS (test code 21 - 40 #/LPF <100 A = SQU) UA CULTURE NEEDED? (test code Criteria met = UACULT) Indication for culture: Gross HematuriaURINE SOURCE: ccUA MICROSCOPIC 2021-05-22 19:50:00 Test Item Value Reference Range Interpretation Comments UA RBC (test code = RBCU) #/HPF NONE SEEN Indication for culture: Gross HematuriaURINE SOURCE: ccUA RFLX MICROSCOPIC [id number] 19:49:00 Test Item Value Reference Range Interpretation Comments UA COLOR (test code = COLU) Colorless YELLOW UA APPEARANCE (test code = CLEAR CLEAR APPU) UA GLUCOSE DIPSTICK (test NORMAL mg/dL NEGATIVE code = DGLUU) UA BILIRUBIN DIPSTICK (test NEGATIVE NEGATIVE code = BILU) UA KETONE DIPSTICK (test code NEGATIVE mg/dL NEGATIVE = KETU) UA SPECIFIC GRAVITY (test 1.006 1.001-1.035 N code = SGU) UA BLOOD DIPSTICK (test code NEGATIVE NEGATIVE = ROSEMARY) UA PH DIPSTICK (test code = 5.5 5.5-7.0 N EMANUEL) UA PROTEIN DIPSTICK (test NEGATIVE mg/dL NEGATIVE code = PROU) UA UROBILINOGEN DIPSTICK NORMAL mg/dL NORMAL (test code = URO) UA NITRITE DIPSTICK (test NEGATIVE NEGATIVE code = PIERRE) UA LEUKOCYTE ESTERASE 250 NEGATIVE A DIPSTICK (test code = LEUU) UA COMMENT (test code = COMU) VOLUME 10-12 ML URINE SPECIMEN DESCRIPTION Clean Catch (test code = UASPEC) UA WBC (test code = WBCU) 21 - 30 #/HPF 0-10 A UA SQUAMOUS CELLS (test code 21 - 40 #/LPF <100 A = SQU) UA CULTURE NEEDED? (test code Criteria met = UACULT) Indication for culture: Gross HematuriaURINE SOURCE: ccUA MICROSCOPIC 2021-05-22 19:49:00 Test Item Value Reference Range Interpretation Comments UA RBC (test code = RBCU) #/HPF NONE SEEN Indication for culture: Gross HematuriaURINE SOURCE: ccCBC W/AUTO DIFF 2021-05-22 18:47:00 Test Item Value Reference Range Interpretation Comments WHITE BLOOD CELL (test code = 10.11 x10 3/uL 4.80-10.80 N WBC) RED BLOOD CELL (test code = 5.06 x10 6/uL 4.2-5.4 N RBC) HEMOGLOBIN (test code = HGB) 14.8 G/DL 12.0-16.0 N HEMATOCRIT (test code = HCT) 45.1 % 37-47 N MEAN CELL VOLUME (test code = 89.1 FL 81-99 N MCV) MEAN CELL HGB (test code = 29.2 PG 27-31 N MCH) MEAN CELL HGB CONCENTRATION 32.8 G/DL 33-37 L (test code = MCHC) RED CELL DISTRIBUTION WIDTH 12.6 % 11.5-14.5 N (test code = RDW) PLATELET COUNT (test code = 357 x10 3/uL 150-450 N PLT) MEAN PLATELET VOLUME (test 10.3 FL 7.4-10.4 N code = MPV) NEUTROPHIL % (test code = NT%) 66.0 % 42-86 N IMMATURE GRANULOCYTE % (test 0.6 % 0.0-2.0 N code = IG%) LYMPHOCYTE % (test code = LY%) 25.1 % 24-44 N MONOCYTE % (test code = MO%) 7.2 % 0.0-4.0 H EOSINOPHIL % (test code = EO%) 0.7 % 0.0-2.7 N BASOPHIL % (test code = BA%) 0.4 % 0.0-0.5 N NUCLEATED RBC % (test code = 0.0 % 0.0-0.0 N NRBC%) NEUTROPHIL # (test code = NT#) 6.67 x10 3/uL 1.8-7.7 N IMMATURE GRANULOCYTE # (test 0.06 x10 3/uL 0.00-0.03 H code = IG#) LYMPHOCYTE # (test code = LY#) 2.54 x10 3/uL 1.0-4.8 N MONOCYTE # (test code = MO#) 0.73 x10 3/uL 0.0-0.8 N EOSINOPHIL # (test code = EO#) 0.07 x10 3/uL 0.0-0.5 N BASOPHIL # (test code = BA#) 0.04 x10 3/uL 0.0-0.2 N NUCLEATED RBC # (test code = 0.0 X10 3/uL 0.0-0.2 N NRBC#) BASIC METABOLIC [id number] 18:28:00 Test Item Value Reference Range Interpretation Comments SODIUM (test code = 139 MMOL/L 133-145 N NA) POTASSIUM (test code = 3.7 MMOL/L 3.6-5.2 N K) CHLORIDE (test code = 102 MMOL/L 100-108 N CL) CARBON DIOXIDE (test 29 MMOL/L 22-32 N code = CO2) GLUCOSE (test code = 81 MG/DL 65-99 N Results of this assay GLU) method may be f alsely depressed orele vated if patient is t aking sulfasalazine. BLOOD UREA NITROGEN 11 MG/DL 6-20 N (test code = BUN) GLOMERULAR FILTRATION 81 64-149 N Report ing units: RATE (test code = GFR) mL/mi n/1.73m\S\2 (Modified MDRD Formula) CREATININE (test code 0.80 MG/DL 0.60-1.00 N = CREAT) CALCIUM (test code = 9.1 MG/DL 8.7-10.5 N CA) HCG [id number] 18:28:00 Test Item Value Reference Range Interpretation Comments HCG SERUM (test code 37635 0-6 H Reporti ng Units: = HCGQT) micro-internati onal units/mL Gestat ional Age hCG level ----- ---------0.2-1 week 501-2 whit scott 50-3 we eks 100-5,0003- 4 weeks 500-10, 0004-5 weeks 1,000-50,0005-6 weeks 10,000-1 00,0006-8 weeks 15,000-200,0002 -3 months 10,000 -100,000 hCG levels rise rap idly during for 1 0-12 weeksand slowly decline to 1,000 - 50,000 in third trimester. Manu facturer Disclaimer:Valu es from different assay methods may vary. The use o fthis assay to monitor or t o diagnose patients with c anceror any condition unrel ated to has n ot beenapproved by the FDA or the manufacture r of this assay. HCG [id number] 17:55:00 Test Item Value Reference Range Interpretation Comments HCG SERUM (test code 0-6 N Reporti ng Units: = HCGQT) micro-internati onal units/mL Gestat ional Age hCG level ----- ---------0.2-1 week -2 whit scott -3 we eks 100-5,0003- 4 weeks 500-10, 0004-5 weeks 1,000-50,0005-6 weeks 10,000-1 00,0006-8 weeks 15,000-200,0002 -3 months 10,000 -100,000 hCG levels rise rap idly during for 1 0-12 weeksand slowly decline to 1,000 - 50,000 in third trimester. Manu facturer Disclaimer:Valu es from different assay methods may vary. The use o fthis assay to monitor or t o diagnose patients with c anceror any condition unrel ated to has n ot beenapproved by the FDA or the manufacture r of this assay. BASIC METABOLIC [id number] 17:55:00 Test Item Value Reference Range Interpretation Comments SODIUM (test code = 139 MMOL/L 133-145 N NA) POTASSIUM (test code = 3.7 MMOL/L 3.6-5.2 N K) CHLORIDE (test code = 102 MMOL/L 100-108 N CL) CARBON DIOXIDE (test 29 MMOL/L 22-32 N code = CO2) GLUCOSE (test code = 81 MG/DL 65-99 N Results of this assay GLU) method may be f alsely depressed orele vated if patient is t aking sulfasalazine. BLOOD UREA NITROGEN 11 MG/DL 6-20 N (test code = BUN) GLOMERULAR FILTRATION 81 64-149 N Report ing units: RATE (test code = GFR) mL/mi n/1.73m\S\2 (Modified MDRD Formula) CREATININE (test code 0.80 MG/DL 0.60-1.00 N = CREAT) CALCIUM (test code = 9.1 MG/DL 8.7-10.5 N CA) - US PREG UT [id number] 17:14:00 [facility] 1985 Sex: F Patient Name: ISRAEL DIAZ Unit No: [id number] EXAMS: CPT CODE: [id number] US PREG UT TRANSVAGINAL 18439 ULTRASOUND OB 1ST TRIMESTER ULTRASOUND TRANSVAGINAL Dictation Location: N13 CLINICAL HISTORY: pelvic pain and bleeding COMPARISON: None. TECHNIQUE: Ultrasound of the pelvis was obtained using transabdominal and transvaginal technique. Real-time grayscale, color and spectral Doppler imaging was performed. FINDINGS: The uterus measures 9.5 x 5.3 x 6.6 cm. There is a 2.2 x 2.2 x 2.3 cm anterior uterine body fibroid. There is a acosta live IUP withaverage gestational sac measurement of 1.17 cm equal to 5 weeks 6 days. [place]-rump length is 0 .39 cm equal to 6 weeks 1 day. heart rate is 99 BPM. There is a small 1.9 x 0.8 x 0.8 cm subchorionic hemorrhage. Right ovary measures 2.9 x 1.5 x 1.7 cm. Left ovary measures 3.2 x 1.8 x 2.2 cm. Both ovaries are normal in size for the patient's age without suspicious masses or torsion. Normal arterial inflow and venous outflow of each ovary was demonstrated using spectral Doppler. No evidence of free fluid in the cul-de-sac. No separate pelvic mass is demonstrated to suggest concurrent ectopic .IMPRESSION: 1. Acosta live IUP of 6 weeks 1 day. 2. Small subchorionic hemorrhage. Small fibroid noted. at 1714 Reported and signed by: Tiana Mendoza MD CC: Sheyla Kerr MD Technologist: Corin Gautam Trnscrbd D/ ([id number]) [id number].[email or web address] Orig Print D/T: S: 05/22/2021 (1997) Probe: [id number] [facility] NAME:ISRAEL DIAZ [address]: [place] [address] : 1985 AGE: 35 SEX: F LOC: SherylVAHID PHONE #: [phone] EXAM DATE: 05/22/2021 STATUS: PRE ER FAX #: RAD NO: Page 1 Signed Report- US PREG 1ST [id number] 17:14:00 [facility] : 1985 Sex: F Patient Name: ISRAEL DIAZ Unit No: [id number] EXAMS: CPT CODE: [id number] US PREG 1ST TRIMTR 21411 ULTRASOUND OB 1ST TRIMESTER ULTRASOUND TRANSVAGINAL Dictation Location: N13 CLINICAL HISTORY: pelvic pain and bleeding COMPARISON: None. TECHNIQUE: Ultrasound of the pelvis was obtained using transabdominal and transvaginal technique. Real-time grayscale, color and spectral Doppler imaging was performed. FINDINGS: The uterus measures 9.5 x 5.3 x 6.6 cm. There is a 2.2 x 2.2 x 2.3 cm anterior uterine body fibroid. There is a acosta live IUP withaverage gestational sac measurement of 1.17 cm equal to 5 weeks 6 days. [place]-rump length is 0 .39 cm equal to 6 weeks 1 day. heart rate is 99 BPM. There is a small 1.9 x 0.8 x 0.8 cm subchorionic hemorrhage. Right ovary measures 2.9 x 1.5 x 1.7 cm. Left ovary measures 3.2 x 1.8 x 2.2 cm. Both ovaries are normal in size for the patient's age without suspicious masses or torsion. Normal arterial inflow and venous outflow of each ovary was demonstrated using spectral Doppler. No evidence of free fluid in the cul-de-sac. No separate pelvic mass is demonstrated to suggest concurrent ectopic .IMPRESSION: 1. Acosta live IUP of 6 weeks 1 day. 2. Small subchorionic hemorrhage. Small fibroid noted. at 1714 Reported and signed by: Tiana Mendoza MD CC: Jose Juan GARNER; Sheyla Kerr MD Technologist: Corin Gautam Trnscrbd D/ ([id number]) Rafa Orig Print D/T: S: 05/22/2021 (3749) Probe: [facility] NAME:ISRAEL DIAZ [address]: [place] [address] : 1985 AGE: 35 SEX: F LOC: ELLIE PHONE #: [phone] EXAM DATE: 05/22/2021 STATUS: PRE ER FAX #: RAD NO: Page 1 Signed Report
[2022-02-24] MEDS ORDERED: TRAMADOL HCL 50 MG TAB ONE (13:54)
[2022-02-24 14:16] LABS: Urine Blood Trace-intact (Negative); Urine Glucose Negative (Negative); Urine Protein Negative (Negative); Urine Specific Gravity >=1.030 (1.005-1.030); Urine pH 5.5 (5.0-7.0)
[2022-02-24 15:09] LABS: Urine Bacteria LOADED /HPF (<20); Urine RBC <5 /HPF (NONE SEEN)
--- NOTE | 2022-02-24 15:40 | EDPHYS ---
Physician Documentation [facility] Name: Kelsey Diaz Age: 36 yrs Sex: Female : 1985 Arrival Date: 02/24/2022 Time: 13:05 Bed 12 Private MD: ED Physician Reilly Vasques HPI: 02/24 13:46 This 36 yrs old Female presents to ER via Ambulatory with complaints of Back Pain, Pain pm1 All Over. 13:46 The patient presents with pain that is chronic, with no known mechanism of injury, pm1 attributes to her fibromylgia. The symptoms are located in the All over her body. Onset: The symptoms/episode began/occurred Chronically, present for many years. Patient is presenting to the ER now for pain relief because she could not take any pain medications during her , she was taking a muscle relaxant during her that did not help. Delivered 8 weeks ago. Patient was in pain management 2 years for her fibromyalgia. 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 Patient's reports tramadol works well for her pain. She would also like to have her urine checked for a UTI. No symptoms. Associated signs and symptoms: The patient has no apparent associated signs or symptoms, Pertinent negatives: abdominal pain, chest pain, dysuria, fever, headache, nausea, numbness, tingling, vomiting, weakness. The problem was sustained from a chronic condition. Modifying factors: The patient symptoms are alleviated by nothing, the patient symptoms are aggravated by any movement. Severity of symptoms: in the emergency department the symptoms are unchanged. The patient has experienced similar episodes in the past, chronically. The patient has not recently seen a physician. 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 - Social history:: Smoking status: Patient denies any tobacco usage or history of. ROS: 13:46 Constitutional: Negative for fever, chills, and weight loss, Cardiovascular: Negative pm1 for chest pain, palpitations, and edema, Respiratory: Negative for shortness of breath, cough, wheezing, and pleuritic chest pain, Abdomen/GI: Negative for abdominal pain, nausea, vomiting, diarrhea, and constipation. 13:46 MS/Extremity: Negative for injury and deformity, Skin: Negative for injury, rash, and discoloration, Neuro: Negative for headache, weakness, numbness, tingling, and seizure. 13:46 ENT: Positive for sore throat, Negative for ear pain. 13:46 Back: Positive for generalized back pain and pain all over. 13:46 All other systems are negative. Exam: 13:46 Constitutional: This is a well developed, well nourished patient who is awake, alert, pm1 and in no acute distress. Head/Face: Normocephalic, atraumatic. 13:46 Back: No spinal tenderness. No costovertebral tenderness. Full range of motion. Skin: Warm, dry with normal turgor. Normal color with no rashes, no lesions, and no evidence of cellulitis. MS/ Extremity: Pulses equal, no cyanosis. Neurovascular intact. Full, normal range of motion. 13:46 Eyes: Exam is negative for acute changes, Extraocular movements: no acute changes, Conjunctiva: no acute changes, no injection, Sclera: no acute changes, icterus, is not appreciated. 13:46 ENT: Exam is negative for acute changes, Mouth: no acute changes, Lips: normal, moist, Oral mucosa: normal, pink and intact, moist, Posterior pharynx: no acute changes. 13:46 Neck: Exam negative for acute changes. 13:46 Cardiovascular: Exam negative for acute changes, Rate: normal, Rhythm: regular, Pulses: no pulse deficits are appreciated, Heart sounds: normal, normal S1and S2. 13:46 Respiratory: Exam negative for acute changes, respiratory distress, shortness of breath, Breath sounds: are clear throughout. 13:46 Abdomen/GI: Exam negative for acute changes, Inspection: abdomen appears normal, Palpation: abdomen is soft and non-tender, in all quadrants. 13:46 Neuro: Exam negative for acute changes, Orientation: is normal, Mentation: is normal, Motor: is normal, moves all fours, Gait: is steady, at a normal pace, without difficulty. Vital Signs: 13:44 BP 128 / 94; Pulse 89; Resp 17; Temp 97.; Pulse Ox 100% ; Weight 95.25 kg; Height 5 ft. jl7 4 in. (162.56 cm); Pain 8/10; 15:55 BP 127 / 87; Pulse 83; Resp 18; Pulse Ox 100% ; mb7 16:28 BP 131 / 86; Pulse 85; Resp 15; Pulse Ox 100% ; jl7 13:44 Body Mass Index 36.05 (95.25 kg, 162.56 cm) jl7 MDM: 13:15 Patient medically screened. pm1 14:15 Data reviewed: vital signs. Data interpreted: Pulse oximetry: on room air is 100 %. pm1 Interpretation: normal. 15:38 Counseling: I had a detailed discussion with the patient and/or guardian regarding: the pm1 historical points, exam findings, and any diagnostic results supporting the discharge/admit diagnosis, lab results, the need for outpatient follow up, to return to the emergency department if symptoms worsen or persist or if there are any questions or concerns that arise at home. 15:41 ED course: PMPaware reviewed. pm1 17:02 ED course: Pharmacy called because I did not catch that the patient's prior pm1 prescription was a 90 day supply for Tramadol. 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 02/24 13:44 Order name: Urine Microscopic Only; Complete Time: 15:12 pm1 02/24 13:44 Order name: Strep; Complete Time: 14:42 pm1 02/24 13:44 Order name: COVID-19 SARS RT PCR (Document "Date of Onset" if Symptomatic); Complete pm1 Time: 15:38 02/24 13:44 Order name: Flu; Complete Time: 15:05 pm1 02/24 14:16 Order name: Urine Dipstick-Ancillary; Complete Time: 14:28 EDMS 02/24 13:44 Order name: Urine Dipstick-Ancillary (obtain specimen); Complete Time: 14:16 pm1 02/24 13:44 Order name: Urine Test (obtain specimen); Complete Time: 14:16 pm1 02/24 14:40 Order name: Throat Culture EDMS 02/24 15:12 Order name: Urine Culture EDMS Administered Medications: 14:00 Drug: traMADol 50 mg Route: PO; jl7 14:30 Follow up: Response: No adverse reaction; Pain is decreased jl7 16:25 Drug: Rocephin (cefTRIAXone) 1 grams Route: IM; Site: left ventrogluteal; jl7 16:35 Follow up: Response: No adverse reaction jl7 Disposition: 17:04 Co-signature as Attending Physician, Reilly Vasques MD I agree with the assessment and kdr plan of care. Disposition Summary: 02/24/22 15:39 Discharge Ordered Location: Home pm1 Problem: new pm1 Symptoms: have improved pm1 Condition: Stable pm1 Diagnosis - Acute pharyngitis, unspecified pm1 - UTI/ Urinary tract infection, site not specified pm1 Followup: pm1 - With: Emergency Department - When: As needed - Reason: Worsening of condition Followup: pm1 - With: Private Physician - When: 2 - 3 days - Reason: Recheck today's complaints, Continuance of care, Re-evaluation by your physician Discharge Instructions: - Discharge Summary Sheet pm1 - Pharyngitis pm1 - Urinary Tract Infection, Adult pm1 Forms: - Medication Reconciliation Form pm1 - Thank You Letter pm1 - Antibiotic Education pm1 - Prescription Opioid Use pm1 Prescriptions: - Tramadol 50 mg Oral Tablet - take 1 tablet by ORAL route every 8 hours as needed; 12 tablet; Refills: 0, pm1 Product Selection Permitted - Bactrim DS 800-160 mg Oral Tablet - take 1 tablet by ORAL route every 12 hours for 10 days; 20 tablet; Refills: 0, pm1 Product Selection Permitted Signatures: Dispatcher [employer] EDIL Reilly Vasques MD MD kdr Marinas, Patrick, NP STORE PERSON pm1 Lambert Harkins RN RN jl7 Corrections: (The following items were deleted from the chart) 13:46 13:45 PMHx: None; jl7 jl7 13:46 13:45 PSHx: None; jl7 jl7
--- NOTE | 2022-02-24 15:40 | ER ---
Nurse's Notes [facility] Name: Kelsey Diaz Age: 36 yrs Sex: Female : 1985 Arrival Date: 02/24/2022 Time: 13:05 Bed 12 Private MD: Diagnosis: Acute pharyngitis, unspecified;UTI/ Urinary tract infection, site not specified Presentation: 02/24 13:44 Chief complaint: Patient states: Pain all over, "Fibromyalgia flare up.". Coronavirus jl7 screen: At this time, the client does not indicate any symptoms associated with coronavirus-19. Ebola Screen: No symptoms or risks identified at this time. Initial Sepsis Screen: Does the patient meet any 2 criteria? No. Patient's initial sepsis screen is negative. Does the patient have a suspected source of infection? No. Patient's initial sepsis screen is negative. Risk Assessment: Do you want to hurt yourself or someone else? Patient reports no desire to harm self or others. Onset of symptoms is unknown. 13:44 Method Of Arrival: Ambulatory jl7 13:44 Acuity: MARLEN 4 jl7 Triage Assessment: 13:45 General: Appears in no apparent distress. uncomfortable, Behavior is calm, cooperative, jl7 appropriate for age. Pain: Complains of pain in all over Pain currently is 8 out of 10 on a pain scale. Musculoskeletal: Range of motion: intact in all extremities, Swelling absent. 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 - Social history:: Smoking status: Patient denies any tobacco usage or history of. Screenin:29 Abuse screen: Denies threats or abuse. Denies injuries from another. Nutritional jl7 screening: No deficits noted. Tuberculosis screening: No symptoms or risk factors identified. Fall Risk No IV (0 pts). Assessment: 14:00 General: See triage. jl7 16:28 Reassessment: Pt will be discharged after shot time. jl7 Vital Signs: 13:44 BP 128 / 94; Pulse 89; Resp 17; Temp 97.; Pulse Ox 100% ; Weight 95.25 kg; Height 5 ft. jl7 4 in. (162.56 cm); Pain 8/10; 15:55 BP 127 / 87; Pulse 83; Resp 18; Pulse Ox 100% ; mb7 16:28 BP 131 / 86; Pulse 85; Resp 15; Pulse Ox 100% ; jl7 13:44 Body Mass Index 36.05 (95.25 kg, 162.56 cm) jl7 ED Course: 13:05 Patient arrived in ED. ja2 13:09 Kevin Lam NP is PHCP. pm1 13:09 Reilly Vasques MD is Attending Physician. pm1 13:45 Triage completed. jl7 13:45 Arm band placed on right wrist. jl7 14:16 Urine Microscopic Only Sent. mb7 15:58 Lambert Harkins RN is Primary Nurse. jl7 16:30 Patient has correct armband on for positive identification. jl7 16:30 No provider procedures requiring assistance completed. Patient did not have IV access jl7 during this emergency room visit. Administered Medications: 14:00 Drug: traMADol 50 mg Route: PO; jl7 14:30 Follow up: Response: No adverse reaction; Pain is decreased jl7 16:25 Drug: Rocephin (cefTRIAXone) 1 grams Route: IM; Site: left ventrogluteal; jl7 16:35 Follow up: Response: No adverse reaction jl7 Medication: 16:30 VIS not applicable for this client. jl7 Outcome: 15:39 Discharge ordered by MD. pm1 16:38 Discharged to home ambulatory. jl7 16:38 Condition: stable 16:38 Discharge instructions given to patient, Instructed on discharge instructions, follow up and referral plans. medication usage, Demonstrated understanding of instructions, follow-up care, medications, Prescriptions given X 2. 16:38 Patient left the ED. jl7 Signatures: Kevin Lam NP FIRE INVESTIGATION MANAGER pm1 Lambert Harkins RN RN [email or web address] Sonal Canales Mary 7 Corrections: (The following items were deleted from the chart) 13:46 13:45 PMHx: None; jl7 jl7 13:46 13:45 PSHx: None; jl7 jl7
[2022-02-24] MEDS ORDERED: LIDOCAINE 1% MPF 2 ML AMPULE ONE (16:14)
[2022-02-24] MEDS ORDERED: CEFTRIAXONE 1000 MG/VIAL ONE (16:14)
[2022-02-24 16:46] VITALS: TEMP 97; O2SAT 100
[2022-02-24 16:52] VITALS: BP 131/86
== END 2022-02-24 16:38 | disposition home or self-care (01) ==
LOC: ER 12:42
DX: N39.0 Urinary tract infection, site not specified (principal); J02.9 Acute pharyngitis, unspecified; M79.7 Fibromyalgia; Z20.822 Contact with and (suspected) exposure to COVID-19
CPT/HCPCS: 81003; 81015; 87070; 87077; 87081; 87086; 87088; 87186; 87804; 96372; 99283; U0003

== ENCOUNTER → 2023-10-16 | Emergency (ER) | payer SELFPAY ==
[~2023-10-16] MED LIST: KETOROLAC 30 MG/ML INJ ONE; ONDANSETRON 4 MG (ODT) TAB ONE
[2023-10-16 10:37] LABS: SARS-CoV-2 Antigen Rapid Res Negative (Negative)
--- NOTE | 2023-10-16 11:09 | EDPHYS ---
Physician Documentation [facility] Name: Kelsey Martinez Age: 38 yrs Sex: Female : 1985 Arrival Date: 10/16/2023 Time: 09:55 Bed 12 Private MD: ED Physician Edgardo San HPI: 10/16 10:23 This 38 yrs old Female presents to ER via Ambulatory with complaints of Flu Symptoms. rt 10:23 Patient presents to the ED with flulike symptoms, reported with cough, congestion, rt nausea and bodyaches. She has had multiple family contacts with the flu. Denies difficulty breathing. Denies other acute complaints, symptoms are mild in severity, no other aggravating or alleviating factors.. Historical: - PMHx: 10:00 Fibromyalgia; ll1 - PSHx: 10:00 Appendectomy; section; Cholecystectomy; Ligation of fallopian tube; ll1 - Immunization history:: Adult Immunizations up to date. - Social history:: Smoking status: Patient denies any tobacco usage or history of. - Family history:: not pertinent. ROS: 10:23 Cardiovascular: Negative for chest pain, palpitations, and edema, MS/Extremity: rt Negative for injury and deformity, Skin: Negative for injury, rash, and discoloration, Neuro: Negative for headache, weakness, numbness, tingling, and seizure, Psych: Negative for depression, anxiety, suicide ideation, homicidal ideation, and hallucinations, 10:23 Constitutional: Positive for body aches, malaise, 10:23 Respiratory: Positive for cough, Negative for shortness of breath, 10:23 Abdomen/GI: Positive for nausea, Negative for abdominal pain, vomiting, Exam: 10:23 Constitutional: This is a well developed, well nourished patient who is awake, alert, rt and in no acute distress. Head/Face: Normocephalic, atraumatic. Chest/axilla: Normal chest wall appearance and motion. Nontender with no deformity. No lesions are appreciated. Cardiovascular: Regular rate and rhythm with a normal S1 and S2. No gallops, murmurs, or rubs. Normal PMI, no JVD. No pulse deficits. Respiratory: Lungs have equal breath sounds bilaterally, clear to auscultation and percussion. No rales, rhonchi or wheezes noted. No increased work of breathing, no retractions or nasal flaring. Abdomen/GI: Soft, non-tender, with normal bowel sounds. No distension or tympany. No guarding or rebound. No evidence of tenderness throughout. Skin: Warm, dry with normal turgor. Normal color with no rashes, no lesions, and no evidence of cellulitis. MS/ Extremity: Pulses equal, no cyanosis. Neurovascular intact. Full, normal range of motion. Neuro: Awake and alert, GCS 15, oriented to person, place, time, and situation. Cranial nerves II-XII grossly intact. Motor strength 5/5 in all extremities. Sensory grossly intact. Cerebellar exam normal. Normal gait. Psych: Awake, alert, with orientation to person, place and time. Behavior, mood, and affect are within normal limits. Vital Signs: 10:01 BP 144 / 89; Pulse 106; Resp 17; Temp 99.1; Pulse Ox 98% ; Weight 99.79 kg; Height 5 ll1 ft. 4 in. ; Pain 10/10; 10:01 Body Mass Index 37.76 (99.79 kg, 162.56 cm) ll1 10:01 Pain Scale: Adult ll1 MDM: 10:04 Patient medically screened. rt 10/16 10:08 Order name: Influenza Screen (a \T\ B); Complete Time: 10:52 rt 10/16 10:08 Order name: SARS RAPID; Complete Time: 10:52 rt Administered Medications: 10:25 Drug: Ketorolac IM 15 mg IM once Route: IM; Site: left gluteus; ll1 10:25 Drug: Ondansetron PO 4 mg PO once Route: PO; ll1 Disposition Summary: 10/16/23 11:08 Discharge Ordered Notes: Location: Home rt Problem: new rt Symptoms: have improved rt Condition: Stable rt Diagnosis - Influenza B rt Followup: rt - With: Private Physician - When: 5 - 6 days - Reason: Discharge Instructions: - Discharge Summary Sheet ll1 - Influenza, Adult rt Forms: - Work release form ll1 - Medication Reconciliation Form rt - Thank You Letter rt - Antibiotic Education rt - Prescription Opioid Use rt - Patient Portal Instructions rt - Leadership Thank You Letter rt Signatures: Dispatcher [employer] Corey Lopez RN RN ll1 Edgardo San MD MD rt
--- NOTE | 2023-10-16 11:09 | ER ---
Nurse's Notes [facility] [place] Name: Kelsey Martinez Age: 38 yrs Sex: Female : 1985 Arrival Date: 10/16/2023 Time: 09:55 Bed 12 Private MD: Diagnosis: Influenza B Presentation: 10/16 10:01 Chief complaint: Patient states: Cough, congestion since Saturday. Coronavirus screen: ll1 Vaccine status: Patient reports receiving the 2nd dose of the covid vaccine. Client denies travel out of the [place] in the last 14 days. congestion, cough unrelated to allergies, fatigue, headache, nausea, Client presents with at least one sign or symptom that may indicate coronavirus-19. Standard/surgical mask placed on the client. Ebola Screen: Patient denies travel to an Ebola-affected area in the 21 days before illness onset. Initial Sepsis Screen: Does the patient meet any 2 criteria? No. Patient's initial sepsis screen is negative. Does the patient have a suspected source of infection? Yes: Productive cough/pneumonia. Risk Assessment: Do you want to hurt yourself or someone else? Patient reports no desire to harm self or others. Onset of symptoms was October 14, 2023. 10:01 Method Of Arrival: Ambulatory ll1 10:01 Acuity: MARLEN 4 ll1 Triage Assessment: 10:01 General: Appears uncomfortable, ill, Behavior is calm, cooperative, appropriate for 1 age. Pain: Complains of pain in body Quality of pain is described as aching. Neuro: Reports headache weakness. Respiratory: Reports shortness of breath cough that is. GI: Reports nausea. Historical: - PMHx: 10:00 Fibromyalgia; ll1 - PSHx: 10:00 Appendectomy; section; Cholecystectomy; Ligation of fallopian tube; ll1 - Immunization history:: Adult Immunizations up to date. - Social history:: Smoking status: Patient denies any tobacco usage or history of. - Family history:: not pertinent. Screenin:26 [facility] ED Fall Risk Assessment (Adult) Score/Fall Risk Level 0 - 2 = Low Risk ll1 Oriented to surroundings, Maintained a safe environment, Educated pt \T\ family on fall prevention, incl call for assistance when getting out of bed, Hourly rounding (assess needs \T\ fall precautionary measures) done. Abuse screen: Denies threats or abuse. Nutritional screening: No deficits noted. Tuberculosis screening: No symptoms or risk factors identified. Assessment: 10:26 Reassessment: No changes from previously documented assessment. Patient and/or family ll1 updated on plan of care and expected duration. Pain level reassessed. Patient is alert, oriented x 3, equal unlabored respirations, skin warm/dry/pink. Vital Signs: 10:01 BP 144 / 89; Pulse 106; Resp 17; Temp 99.1; Pulse Ox 98% ; Weight 99.79 kg; Height 5 ll1 ft. 4 in. ; Pain 10/; 10:01 Body Mass Index 37.76 (99.79 kg, 162.56 cm) ll1 10:01 Pain Scale: Adult ll1 ED Course: 09:57 Patient arrived in ED. rg4 09:59 Edgardo San MD is Attending Physician. rt 10:00 Arm band placed on. ll1 10:02 Triage completed. ll1 10:18 Corey Crandall RN is Primary Nurse. ll1 10:19 SARS RAPID Sent. ds4 10:19 Influenza Screen (a \T\ B) Sent. ds4 10:26 Patient has correct armband on for positive identification. Bed in low position. Call ll1 light in reach. Side rails up X 1. Provided Education on: ER process and procedures. Cardiac monitoring not applicable on this patient. Administered Medications: 10:25 Drug: Ketorolac IM 15 mg IM once Route: IM; Site: left gluteus; ll1 10:25 Drug: Ondansetron PO 4 mg PO once Route: PO; ll1 Medication: 10:26 VIS not applicable for this client. ll1 Outcome: 11:08 Discharge ordered by . rt 11:25 Patient left the ED. ll1 Signatures: Marshal Gibbs ds4 Jenni Muhammad rg4 Corey Crandall RN RN ll1 Edgardo San MD MD rt Corrections: (The following items were deleted from the chart) 10:03 10:01 Pulse 106bpm; Resp 17bpm; Pulse Ox 98%; Temp 99.1F; 99.79 kg; Height 5 ft. 4 in.; ll1 BMI: 37.7; Pain 10, Adult; ll1
[2023-10-16 11:58] VITALS: BP 144/89; TEMP 99.1; O2SAT 98
== END ==
LOC: ER 09:55
DX: J10.1 Influenza due to other identified influenza virus with other respiratory manifestations (principal); Z11.52 Encounter for screening for COVID-19
CPT/HCPCS: 36415; 87804; 87811; Q0162